=== PATIENT | female | born 1965 | race Caucasian/White ===

== ENCOUNTER 2021-11-30 19:57 | Emergency (ER) | payer SELFPAY ==
[~2021-11-30] VITALS: Ht 165.1 cm; Wt 82.0 kg
[2021-12-01] MEDS ORDERED: ACET650T37 MT (00:21)
[2021-12-01] MEDS ORDERED: CEPH500C2 MT (00:23)
[2021-12-01 01:11] VITALS: BP 123/71
== END 2021-12-01 01:13 | disposition home or self-care (01) ==
LOC: ER 19:57
DX: S82.402A Unspecified fracture of shaft of left fibula, initial encounter for closed fracture (principal); X58.XXXA Exposure to other specified factors, initial encounter; Y93.9 Activity, unspecified; Y92.89 Other specified places as the place of occurrence of the external cause; Y99.8 Other external cause status
CPT/HCPCS: 36415; 73590; 73610; 80307; 93971; 99285